=== PATIENT | female | born 1960 | race Caucasian/White ===

== ENCOUNTER 2020-11-26 18:53 | Emergency (ER) | payer OTHER ==
[~2020-11-26] VITALS: Ht 170.2 cm; Wt 50.8 kg
[2020-11-26] MEDS ORDERED: LISI5 PO (19:30)
[2020-11-26] MEDS ORDERED: EUTHYROX125 MC1 PO (19:30)
== END 2020-11-26 20:23 | disposition home or self-care (01) ==
LOC: ER 18:53
DX: Z00.00 Encounter for general adult medical examination without abnormal findings (principal); F17.210 Nicotine dependence, cigarettes, uncomplicated; Z98.890 Other specified postprocedural states; Z79.899 Other long term (current) drug therapy; Z88.4 Allergy status to anesthetic agent; Z88.8 Allergy status to other drugs, medicaments and biological substances
CPT/HCPCS: 99282

== ENCOUNTER → 2022-09-04 | Outpatient (CLI) | payer OTHER ==
[~2022-09-04] MED LIST: EUTHYROX125 MC1 PO; LISI5 PO
[2022-09-04 11:43] LABS: Stool Occult Bld Immuno 1 Positive (NEGATIVE)
== END | disposition home or self-care (01) ==
LOC: LAB 07:18 → LAB SHORT 07:18
PROVIDERS: Family Medicine
DX: Z12.11 Encounter for screening for malignant neoplasm of colon (principal)
CPT/HCPCS: G0328

== ENCOUNTER 2023-04-09 08:12 | Day surgery (SDC) | payer OTHER ==
[~2023-04-09] VITALS: Ht 170.2 cm; Wt 55.8 kg
[2023-04-09 11:00] VITALS: BP 118/73
== END 2023-04-09 11:05 | disposition home or self-care (01) ==
LOC: ORSCSDS 08:12
PROVIDERS: Surgery
PROC: 0DBN8ZX Excision of Sigmoid Colon, Via Natural or Artificial Opening Endoscopic, Diagnostic (ICD-10-PCS; principal; 2023-04-09 09:45)
PROC: 0DBH8ZX Excision of Cecum, Via Natural or Artificial Opening Endoscopic, Diagnostic (ICD-10-PCS; principal; 2023-04-09 09:45)
PROC: 0DBL8ZX Excision of Transverse Colon, Via Natural or Artificial Opening Endoscopic, Diagnostic (ICD-10-PCS; principal; 2023-04-09 09:45)
DX: Z12.11 Encounter for screening for malignant neoplasm of colon (principal); R19.5 Other fecal abnormalities; D12.5 Benign neoplasm of sigmoid colon; D12.0 Benign neoplasm of cecum; D12.3 Benign neoplasm of transverse colon; I10 Essential (primary) hypertension; E78.5 Hyperlipidemia, unspecified; E03.9 Hypothyroidism, unspecified; Z79.899 Other long term (current) drug therapy
CPT/HCPCS: 88305; J2704; J7120

== ENCOUNTER → 2023-07-21 | Outpatient (CLI) | payer OTHER ==
[2023-07-31 06:36] LABS: HPV GENOTYPE 16 Detected; HPV GENOTYPE 18 Not Detected; HPV HIGH RISK Detected; HPV SOURCE Cervical
== END | disposition home or self-care (01) ==
LOC: LAB 14:57 → LAB SHORT 14:57
PROVIDERS: Family Medicine
DX: Z01.419 Encounter for gynecological examination (general) (routine) without abnormal findings (principal)
CPT/HCPCS: 87624; G0123

== ENCOUNTER → 2024-04-05 | Outpatient (CLI) | payer OTHER ==
[2024-04-13 13:43] LABS: HPV HIGH RISK BY TMA Not Detected; HPV SOURCE Vaginal
== END ==
LOC: LAB SHORT 14:26 → LAB 14:26
PROVIDERS: Obstetrics & Gynecology
DX: D06.9 Carcinoma in situ of cervix, unspecified (principal)
CPT/HCPCS: 87624; G0123

== ENCOUNTER → 2025-04-13 | Outpatient (CLI) | payer OTHER | LOC: LAB SHORT 14:58 → LAB 14:58 | PROVIDERS: Family Medicine | DX: Z01.419 Encounter for gynecological examination (general) (routine) without abnormal findings (principal) | CPT/HCPCS: 87624; G0145 ==